=== PATIENT | male | born 1940 | race Caucasian/White ===

== ENCOUNTER → 2016-06-17 | Outpatient (REF) | payer MEDICARE, OTHER ==
[~2016-06-17] MED LIST: ASPI32ECTA PO; CENTTAB PO; CLON-404 PO; DOXA1TAB40 PO; FISH5CAP PO; GLUCTAB6 PO; METO50TA2 PO; NITR4TASL SL; PROS5TAB PO; SIMV20TA2 PO; VALS320T3 PO; ZYLO300T4 PO
== END | disposition home or self-care (01) ==
LOC: M SMT 12:48
PROVIDERS: ATTEND Urology
DX: C67.9 Malignant neoplasm of bladder, unspecified (principal)

== ENCOUNTER → 2016-09-16 | Outpatient (REF) | payer MEDICARE, OTHER | LOC: M SMT 13:08 | PROVIDERS: ATTEND Urology | DX: C67.9 Malignant neoplasm of bladder, unspecified (principal); N39.0 Urinary tract infection, site not specified ==

== ENCOUNTER 2016-10-18 04:19 | Emergency (ER) | payer MEDICARE, BC, OTHER ==
[~2016-10-18] VITALS: Ht 182.9 cm; Wt 100.7 kg
[2016-10-18] MEDS ORDERED: GI COCKTAIL 50ML BTL(HYOSCYAMINE/MAALOX/LIDOCAINE VISCOUS)(1:3:1) PO ONE (05:00)
[2016-10-18] MEDS ORDERED: PANTOPRAZOLE 40MG INJ (PROTONIX) (C9113) IV ONE (05:00)
[2016-10-18] MEDS ORDERED: ONDANSETRON 4MG/2ML VIAL (J2405) IV ONE (05:00)
[2016-10-18 05:32] LABS: BASO % 0.2 % (0.0-1.0); EOS # 0.2 K/mm3 (0.0-0.50); EOS % 1.3 % (0.0-3.0); LARGE UNSTAINED CELL # 0.3 K/mm3 (0.0-0.4); LARGE UNSTAINED CELL % 2.2 % (0.0-4.0); LYMPH % 16.7 % (24.0-44.0); MEAN CORPUSCULAR HEMOGLOBIN 33.3 pg (27.0-33.0); MEAN CORPUSCULAR HGB CONC 34.7 g/dl (32.0-36.5); MONO # 0.6 K/mm3 (0.0-0.8); NEUTROPHILS # 8.7 K/mm3 (1.8-7.7); NEUTROPHILS % 74.6 % (36.0-66.0); PLATELET COUNT, AUTOMATED 202 k/mm3 (150-450); WHITE BLOOD COUNT 11.7 K/mm3 (4.0-10.0)
[2016-10-18 05:48] LABS: ALBUMIN 3.8 GM/DL (3.2-5.2); ALBUMIN/GLOBULIN RATIO 1.27 (1.00-1.93); ALKALINE PHOSPHATASE 57 U/L (45-117); ALT/SGPT 55 U/L (12-78); ANION GAP 10 MEQ/L (8-16); AST/SGOT 39 U/L (15-37); BILIRUBIN,DIRECT 0.2 MG/DL (0.0-0.2); BILIRUBIN,TOTAL 0.6 MG/DL (0.2-1.0); BLOOD UREA NITROGEN 25 MG/DL (7-18); CALCIUM LEVEL 10.8 MG/DL (8.8-10.2); CARBON DIOXIDE LEVEL 29 MEQ/L (21-32); CHLORIDE LEVEL 101 MEQ/L (98-107); CREATININE FOR GFR 1.38 MG/DL (0.70-1.30); GLOMERULAR FILTRATION RATE 53.6 (>42); GLUCOSE, FASTING 133 MG/DL (83-110); POTASSIUM SERUM 4.1 MEQ/L (3.5-5.1); SODIUM LEVEL 140 MEQ/L (136-145); TOTAL PROTEIN 6.8 GM/DL (6.4-8.2)
[2016-10-18] MEDS ORDERED: PROT1TAB2 PO (06:26)
[2016-10-18 06:39] VITALS: BP 161/69
--- NOTE | 2016-10-18 16:46 | ECGEPIP ---
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
[2016-10-19] MEDS ORDERED: ALLO15TA PO (00:49)
[2016-10-19] MEDS ORDERED: PROT1TAB2 PO (00:49)
[2016-10-19] MEDS ORDERED: VITMTA PO (00:49)
[2016-10-23] MEDS ORDERED: PROT1TAB2 PO ×2 (11:43→11:45)
== END 2016-10-18 06:41 | disposition home or self-care (01) ==
LOC: M ED 06:05
DX: K21.9 Gastro-esophageal reflux disease without esophagitis (principal); N18.9 Chronic kidney disease, unspecified; Z85.51 Personal history of malignant neoplasm of bladder; Z79.82 Long term (current) use of aspirin; Z79.899 Other long term (current) drug therapy; Z88.6 Allergy status to analgesic agent

== ENCOUNTER 2016-10-18 21:34 | Inpatient (IN) | payer MEDICARE, BC, OTHER ==
[~2016-10-18] VITALS: Ht 182.9 cm; Wt 92.9 kg
[~2016-10-18 21:34] MED LIST changes: +PROT1TAB2 PO; +cloNIDine HCL 0.3 MG/24 HR PATCH TOP SCH
[2016-10-18] MEDS ORDERED: ONDANSETRON 4MG/2ML VIAL (J2405) IV ONE (22:00)
[2016-10-18] MEDS ORDERED: MORPHINE 2 MG/ML 1ML SYRINGE IV PRN (22:00)
[2016-10-18] MEDS ORDERED: NS 500 ML IV ONE (22:00)
[2016-10-18] MEDS ORDERED: ISOVUE-370 76% 100ML VIAL (Q9967) As Ordered ONE (22:03)
[2016-10-18 22:09] LABS: BASO % 0.2 % (0.0-1.0); EOS # 0.1 K/mm3 (0.0-0.50); EOS % 0.6 % (0.0-3.0); LARGE UNSTAINED CELL # 0.2 K/mm3 (0.0-0.4); LARGE UNSTAINED CELL % 1.3 % (0.0-4.0); LYMPH # 1.6 K/mm3 (1.5-4.5); LYMPH % 12.7 % (24.0-44.0); MEAN CORPUSCULAR HEMOGLOBIN 33.8 pg (27.0-33.0); MEAN CORPUSCULAR HGB CONC 35.2 g/dl (32.0-36.5); MEAN CORPUSCULAR VOLUME 95.8 fl (80.0-96.0); MONO # 0.6 K/mm3 (0.0-0.8); MONO % 4.4 % (0.0-5.0); NEUTROPHILS # 10.3 K/mm3 (1.8-7.7); NEUTROPHILS % 80.8 % (36.0-66.0); PLATELET COUNT, AUTOMATED 214 k/mm3 (150-450); RED CELL DISTRIBUTION WIDTH 12.8 % (11.5-14.5); WHITE BLOOD COUNT 12.7 K/mm3 (4.0-10.0)
[2016-10-18 22:33] LABS: ALBUMIN/GLOBULIN RATIO 1.08 (1.00-1.93); ALKALINE PHOSPHATASE 59 U/L (45-117); ALT/SGPT 53 U/L (12-78); ANION GAP 11 MEQ/L (8-16); AST/SGOT 37 U/L (15-37); BILIRUBIN,DIRECT 0.2 MG/DL (0.0-0.2); BILIRUBIN,TOTAL 0.6 MG/DL (0.2-1.0); BLOOD UREA NITROGEN 27 MG/DL (7-18); CALCIUM LEVEL 10.9 MG/DL (8.8-10.2); CARBON DIOXIDE LEVEL 27 MEQ/L (21-32); CHLORIDE LEVEL 101 MEQ/L (98-107); CREATININE FOR GFR 1.71 MG/DL (0.70-1.30); GLOMERULAR FILTRATION RATE 41.9 (>42); GLUCOSE, FASTING 128 MG/DL (83-110); POTASSIUM SERUM 4.1 MEQ/L (3.5-5.1); SODIUM LEVEL 139 MEQ/L (136-145); TOTAL PROTEIN 7.7 GM/DL (6.4-8.2)
--- NOTE | 2016-10-18 22:40 | REPUSA ---
CT of the abdomen and pelvis with contrast Clinical statement: Pain, vomiting. Technique: Multiple axial CT images were obtained from the base of the lungs through the floor of the pelvis utilizing 5 mm axial slices after administration of nonionic intravenous contrast. Coronal an d sagittal reconstructions were also obtained. Comparison: None. Findings: Chest: The visualized lung bases are clear. Abdomen: The liver, spleen, pancreas, kidneys, gallbladder, and adrenal glands are unremarkable. Mult iple simple cysts are seen in the right kidney. The aorta is within normal limits. There is no eviden ce of abdominal lymphadenopathy or ascites. The stomach is significantly distended. Pelvis: The bowel is unremarkable, with no obstructive or inflammatory changes. Sigmoid diverticulosi s is noted, without evidence of diverticulitis. The urinary bladder is within normal limits. The othe r pelvic structures appear grossly intact. There is no evidence of pelvic lymphadenopathy or ascites. Bones: There are no suspicious osseous abnormalities seen. There is moderately severe degenerative di sc disease at L3/L4, L4/L5, and L5/S1. Impression: 1. Moderately severe distention of the stomach. This is nonspecific, but gastric outlet obstruction c annot be excluded. 2. Multiple simple right renal cysts. 3. Sigmoid diverticulosis without evidence of diverticulitis. 4. Severe spondylosis and degenerative disc disease in the lumbar spine.
[2016-10-18] MEDS ORDERED: NS 1,000 ML IV ONE (22:45)
[2016-10-19] MEDS ORDERED: ALLO15TA PO (00:49)
[2016-10-19] MEDS ORDERED: PROT1TAB2 PO (00:49)
[2016-10-19] MEDS ORDERED: VITMTA PO (00:49)
[2016-10-19] MEDS ORDERED: MORPHINE 2 MG/ML 1ML SYRINGE IV PRN (01:30)
[2016-10-19] MEDS ORDERED: PERCOCET 5MG/325MG TAB PO PRN (01:30)
[2016-10-19] MEDS ORDERED: NITROGLYCERIN 0.4 MG SUBL TABLET SL PRN (01:30)
[2016-10-19] MEDS ORDERED: ACETAMINOPHEN TAB 650MG DOSE (2X325MG) PO PRN (01:30)
[2016-10-19] MEDS ORDERED: BISACODYL 5 MG TAB PO PRN (01:30)
[2016-10-19] MEDS ORDERED: ONDANSETRON 4MG/2ML VIAL (J2405) IV PRN (01:30)
[2016-10-19] MEDS ORDERED: LABETALOL HCL 100 MG/20 ML VIAL IV ONE (02:15)
[2016-10-19 03:15] VITALS: BP 182/90
[2016-10-19] MEDS: LR 1,000 ML IV SCH ×2 (03:30→15:55)
[2016-10-19] MEDS ORDERED: **hydrALAZINE** 10 MG TAB PO ONE (04:00)
[2016-10-19 04:09] LABS: BASO % 0.2 % (0.0-1.0); EOS % 0.4 % (0.0-3.0); LARGE UNSTAINED CELL # 0.2 K/mm3 (0.0-0.4); LARGE UNSTAINED CELL % 1.6 % (0.0-4.0); LYMPH % 16.1 % (24.0-44.0); MEAN CORPUSCULAR HEMOGLOBIN 32.2 pg (27.0-33.0); MEAN CORPUSCULAR HGB CONC 34.4 g/dl (32.0-36.5); MEAN CORPUSCULAR VOLUME 93.4 fl (80.0-96.0); MONO # 0.6 K/mm3 (0.0-0.8); MONO % 4.9 % (0.0-5.0); NEUTROPHILS # 8.9 K/mm3 (1.8-7.7); NEUTROPHILS % 76.9 % (36.0-66.0); PLATELET COUNT, AUTOMATED 205 k/mm3 (150-450); RED CELL DISTRIBUTION WIDTH 13.1 % (11.5-14.5); WHITE BLOOD COUNT 11.6 K/mm3 (4.0-10.0)
[2016-10-19 04:35] LABS: ALBUMIN 3.7 GM/DL (3.2-5.2); ALBUMIN/GLOBULIN RATIO 1.28 (1.00-1.93); BILIRUBIN,TOTAL 0.4 MG/DL (0.2-1.0); CALCIUM LEVEL 9.3 MG/DL (8.8-10.2); CREATININE FOR GFR 1.64 MG/DL (0.70-1.30); GLOMERULAR FILTRATION RATE 43.9 (>42); MAGNESIUM LEVEL 1.6 MG/DL (1.8-2.4); POTASSIUM SERUM 4.1 MEQ/L (3.5-5.1); TOTAL PROTEIN 6.6 GM/DL (6.4-8.2)
[2016-10-19 05:29] VITALS: BP 179/70
[2016-10-19] MEDS ORDERED: MAG SULF 1GM/100ML (MAG RUN) 1 GM in APPROPRIATE DILUENT 1 EA IV ONE (05:45)
--- NOTE | 2016-10-19 08:10 | HPE ---
DATE OF ADMISSION: 10/19/2016 PRIMARY CARE PHYSICIAN: Dr. Mcintyre. UROLOGIST: Dr. Simon. CODE STATUS: DO NOT RESUSCITATE/DO NOT INTUBATE (DNR/DNI). CHIEF COMPLAINT: Nausea, vomiting and abdominal pain bilaterally. HISTORY OF PRESENT ILLNESS: Mr. Santiago is a 75-year-old male with multiple past medical history who presented to the emergency room (ER) due to experiencing two days of abdominal pain as well as nausea and four episodes of vomiting. The patient expressed that the nausea started about two days ago and the patient had episode of vomiting. At first, he thought that it was going to get better with eating some crackers, however, it did not help. The patient came to the ER at [facility]. At the ER, the patient was diagnosed wit gastroesophageal reflux disease (GERD) and received Zofran and one dose of GI cocktail. The patient expressed that after that the patient felt better and went home. The patient said that he was doing better in the morning. For lunch, the patient had chicken soup, however, after eating chicken soup he started noticing nausea and the patient started having four episodes of vomiting. However, the patient did not see any blood in his vomit. The patient expressed that his abdominal pain and discomfort increased to the point that the patient came back to the ER. 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 However, the patient has not been on chemotherapy or radiation, however, the patient started on a dosage BCG which was administered at urology. The patient had the diarrhea yesterday and the day before, however, the patient did not have any bowel movement today. The patient cannot remember if he has been passing gas after increase of abdominal pain. The patient denies fever, chills or night sweats. The patient also denies altered mental status, seizure type activity or loss of consciousness. The patient expressed that when he came here he had another episode of vomiting when they were performing a CT. PAST MEDICAL HISTORY: 1. Hypertension. 2. Atherosclerosis coronary disease. 3. Hyperlipidemia. 4. Kidney disease. PAST SURGICAL HISTORY: 1. Tonsillectomy. 2. Partial colectomy from diverticulitis. 3. Inguinal hernia. 4. Hemorrhoidectomy. 5. Cardiac stent. 6. TURBT on 12/31/2015. 7. Restaging TURBT on 02/15/2016. ALLERGIES: - NSAIDS HOME MEDICATIONS: - allopurinol 150 mg by mouth daily - aspirin 325 mg by mouth daily - clonidine 0.3 mg by mouth twice a day - doxazosin mesylate 4 mg by mouth daily - Proscar 5 mg by mouth daily - fish oil 1200 mg one capsule by mouth twice a day - glucosamine one tablet by mouth daily - metoprolol 50 mg by mouth twice a day - multivitamin one tablet by mouth daily - Nitrostat 0.4 mg sublingual as needed angina - Protonix 40 mg by mouth daily - valsartan/hydrochlorothiazide one tablet by mouth daily REVIEW OF SYSTEMS: The patient denies fever, chills, night sweats, weight loss, weight gain. HEENT: The patient denies acute vision or hearing changes. The patient denies problem with chewing food or sinusitis. NECK: The patient denies lumps, bumps, or decreased range of motion of his neck. HEART: The patient denies chest pain, however, patient expressed that he had some feeling of palpitations when he was vomiting, possibly secondary to stress. LUNGS: The patient denies shortness of breath or coughing. ABDOMEN: The patient expressed that he has been experiencing abdominal pain bilaterally, left more than right. The patient had four episodes of vomiting, however, no emesis was noticed. The patient had one episode of diarrhea yesterday, however, the patient denies melena or hematochezia, or constipation. NEUROLOGIC: The patient denies history of transient ischemic attack (TIA), cerebrovascular accident (CVA) or seizure-type activities. PHYSICAL EXAMINATION: VITAL SIGNS: Temperature 97.7, pulse 99, respiratory rate 18, blood pressure 181/111, pulse oximetry 97% on room air. GENERAL APPEARANCE: The patient was lying in bed in no acute distress. The patient was awake, alert, and oriented to time, place and person. HEENT: Normocephalic, atraumatic. Pupils are equal and reactive to light. Oral mucosa is moist. NECK: Soft, supple. No thyromegaly. No jugular venous distention (JVD). HEART: Tachycardia. Normal S1, S2. LUNGS: The patient has clear breath sounds bilaterally. Good air movement. ABDOMEN: Soft. Mild tenderness to palpation in both left and right upper and lower abdominal quadrants. Positive bowel sounds in all quadrants. EXTREMITIES: No lower extremity edema, +2 pulses in both lower extremities. The patient has normal range of motion both upper and lower extremities as well as normal strength (5/5). NEUROLOGIC: Cranial nerves II-XII intact. No focal deficiencies. LABORATORY DATA: White blood cells 12.7, red blood cells 4.45, hemoglobin 15, hematocrit 42.6, MCV 95.8, MCH 33.8, MCHC 35.2, RDW 12.8, platelet count 214, neutrophil percentage 80.8, lymphocyte percentage 12.7, monocyte percentage 4.4, eosinophil percentage 0.6, basophil percentage 0.2, leukocyte percentage 1.3. Sodium 139, potassium 4.1, chloride 101, carbon dioxide 27, anion gap 11, BUN 27 , creatinine 1.71, glomerular filtration rate 41.9, fasting glucose 128, calcium 10.9, total bilirubin 0.6, direct bilirubin 0.2, AST 37, ALT 53, alkaline phosphatase 59, total creatinine kinase 445, CK-MB 8.8, CK MB relative index 1.97, troponin I less than 0.02, total protein 7.7, albumin 4, lipase 234. IMAGING: CT of abdomen and pelvis shows moderately severe distended stomach. This is nonspecific. Gastric outlet obstruction cannot be excluded. Multiple simple right renal cysts. Sigmoid diverticulosis without evidence of diverticulitis. Severe spondylosis. Degenerative disc disease in the lumbar spine. ASSESSMENT AND PLAN: 1. Abdominal pain. The gastric outlet obstruction cannot be excluded. Therefore, NG tube was installed which is on suction. After NG tube, the patient felt better. Also, I made the patient nothing by mouth (n.p.o.). The patient is on IV fluid. Surgery, Dr. Colindres has been consulted. Also, will continue patient on Protonix 40 mg IV every 12 hours and Zofran for nausea. 2. Hypertension. At home, the patient is Diovan 320/25 mg, however, I have held this medication due to abnormal kidney function. Will continue patient on clonidine. 3. Coronary artery disease. At home, the patient is on aspirin 325 mg daily, however, I have held this medication due to possible procedure and I will continue the patient on metoprolol 50 mg by mouth twice a day. EKG did not show any new pathology. Also, first cardiac marker was negative. We will repeat the cardiac marker two times every 6 hours. 4. Acute kidney injury. At this time, I do not have patient's baseline kidney function. This is possibly secondary to dehydration. We will continue the patient on IV fluid. 5. Deep vein thrombosis (DVT) prophylaxis due to possibility of surgery. At this time, we will continue patient on thromboembolic deterrent stockings (TEDS) and sequentials. My preceptor for this patient encounter was Dr. Thalia Paul. The preceptor was physically present in the building during the encounter and was fully available. As needed, all aspects of the patient interview, examination, medical decision making process, and medical care plan development were reviewed and approved by the preceptor. The preceptor is aware and concurs with the plan as stated in the body of this note and will attest to such by his/her cosignature. MOMO
[2016-10-19] MEDS ORDERED: cloNIDine 0.1 MG TAB PO SCH (09:00)
[2016-10-19] MEDS: MULTIVITAMINS/MINERALS THERAP 1 TAB PO SCH (09:00)
[2016-10-19] MEDS ORDERED: METOPROLOL TART 50 MG TAB PO SCH (09:00)
[2016-10-19] MEDS: FINASTERIDE 5 MG TAB PO SCH (09:32)
[2016-10-19] MEDS: DOXAZOSIN MESYLATE 4 MG TAB PO SCH (09:34)
[2016-10-19] MEDS: PANTOPRAZOLE 40MG INJ (PROTONIX) (C9113) IV SCH (09:35)
[2016-10-19] MEDS: ALLOPURINOL 300 MG TAB PO SCH (09:35)
[2016-10-19 14:00] VITALS: BP 154/62
--- NOTE | 2016-10-19 18:39 | IPNPDOC ---
Subjective Date Seen The patient was seen on 10/19/16. Subjective Chief Complaint/HPI The patient is a 75-year-old male admitted with a reason for visit of Gastric Distention. Events since last encounter feels better. tolerating ng tube, wants ice chips for comfort, no chest pain, not sob, case discussed with patient and at bedside, understands plan/ timeframe for egd Constitutional: Denies: Chills, Fever Pulmonary: Denies: Dyspnea, Cough Cardiovascular: Denies: Chest Pain, Palpitations Gastrointestinal: Reports: Nausea, Abdominal Pain, Denies: Vomiting Objective Physical Examination General Exam: Positive: Alert, Cooperative, No Acute Distress Eye Exam: Negative: Sclera icteric ENT Exam: Positive: Mucous membr. moist/pink Chest Exam: Positive: Diminished, Negative: Rales, Rhonchi, Wheezing Heart Exam: Positive: Rate Normal, Normal S1, Normal S2 Abdomen Exam: Positive: BS Hypoactive, Soft, Negative: Tenderness Extremity Exam: Negative: Edema Assessment /Plan Problems (1) Gastric outlet obstruction Status: Acute Problem Specific Plan: Consult Specialist Problem Text: NPO, NG tube Planned for endoscopy I discussed with Dr. Colindres (2) Bladder cancer Status: Chronic Problem Text: on BCG therapy (3) HTN (hypertension) Status: Acute Problem Text: compounded bypain and npo status improved this afternoon (4) CAD (coronary artery disease) Status: Chronic (5) Hyperlipidemia Status: Chronic Plan/VTE VTE Prophylaxis Ordered?: Yes VS, I&O, 24H, Fishbone Vital Signs/I&O Vital Signs Date Time Temp Pulse Resp B/P (MAP) Pulse Ox O2 Delivery O2 Flow Rate FiO2 10/19/16 14:00 98.7 105 18 154/62 (92) 94 Room Air I&O- Last 24 Hours up to 6 AM 10/19/16 05:59 Intake Total 1530 ml Output Total 2000 ml Balance -470 ml Laboratory Data 24H LABS Laboratory Tests 2 10/18/16 22:00: White Blood Count 12.7H, Red Blood Count 4.45, Hemoglobin 15.0, Hematocrit 42.6 , Mean Corpuscular Volume 95.8, Mean Corpuscular Hemoglobin 33.8H, Mean Corpuscular Hemoglobin Concent 35.2, Red Cell Distribution Width 12.8, Platelet Count 214, Neutrophils (%) (Auto) 80.8H, Lymphocytes (%) (Auto) 12.7L, Monocytes (%) (Auto) 4.4, Eosinophils (%) (Auto) 0.6, Basophils (%) (Auto) 0.2, Neutrophils # (Auto) 10.3H, Lymphocytes # (Auto) 1.6, Monocytes # (Auto) 0.6, Eosinophils # (Auto) 0.1, Basophils # (Auto) 0.0, Large Unclassified Cells % 1.3 , Large Unclassified Cells # 0.2, Anion Gap 11, Glomerular Filtration Rate 41.9L , Calcium Level 10.9H, Aspartate Amino Transf (AST/SGOT) 37, Alanine Aminotransferase (ALT/SGPT) 53, Alkaline Phosphatase 59, Total Bilirubin 0.6, Direct Bilirubin 0.2, Total Creatine Kinase 445H, Creatine Kinase MB 8.8H, Creatine Kinase MB Relative Index 1.97, Troponin I < 0.02, Total Protein 7.7, Albumin 4.0, Albumin/Globulin Ratio 1.08, Lipase 234 10/19/16 04:02: White Blood Count 11.6H, Red Blood Count 4.11L, Hemoglobin 13.2L, Hematocrit 38.4L, Mean Corpuscular Volume 93.4, Mean Corpuscular Hemoglobin 32.2, Mean Corpuscular Hemoglobin Concent 34.4, Red Cell Distribution Width 13.1, Platelet Count 205, Neutrophils (%) (Auto) 76.9H, Lymphocytes (%) (Auto) 16.1L, Monocytes (%) (Auto) 4.9, Eosinophils (%) (Auto) 0.4, Basophils (%) (Auto) 0.2, Neutrophils # (Auto) 8.9H, Lymphocytes # (Auto) 2.0, Monocytes # (Auto) 0.6, Eosinophils # (Auto) 0.0, Basophils # (Auto) 0.0, Large Unclassified Cells % 1.6 , Large Unclassified Cells # 0.2, Anion Gap 10, Glomerular Filtration Rate 43.9 , Calcium Level 9.3, Aspartate Amino Transf (AST/SGOT) 32, Alanine Aminotransferase (ALT/SGPT) 44, Alkaline Phosphatase 53, Total Bilirubin 0.4, Total Creatine Kinase 341H, Creatine Kinase MB 6.2H, Creatine Kinase MB Relative Index 1.81, Troponin I 0.03#, Total Protein 6.6, Albumin 3.7, Albumin/ Globulin Ratio 1.28, Blood Urea Nitrogen 28H, Creatinine 1.64H, Sodium Level 143 , Potassium Level 4.1, Chloride Level 105, Carbon Dioxide Level 28, Magnesium Level 1.6L 10/19/16 10:12: Total Creatine Kinase 336H, Creatine Kinase MB 5.9H, Creatine Kinase MB Relative Index 1.75, Troponin I 0.03 CBC/BMP Laboratory Tests 10/18/16 22:00 Red Blood Count 4.45, Mean Corpuscular Volume 95.8, Mean Corpuscular Hemoglobin 33.8 H, Mean Corpuscular Hemoglobin Concent 35.2, Red Cell Distribution Width 12.8, Neutrophils (%) (Auto) 80.8 H, Lymphocytes (%) (Auto) 12.7 L, Monocytes (% ) (Auto) 4.4, Eosinophils (%) (Auto) 0.6, Basophils (%) (Auto) 0.2, Neutrophils # (Auto) 10.3 H, Lymphocytes # (Auto) 1.6, Monocytes # (Auto) 0.6, Eosinophils # (Auto) 0.1, Basophils # (Auto) 0.0 10/19/16 04:02 Red Blood Count 4.11 L, Mean Corpuscular Volume 93.4, Mean Corpuscular Hemoglobin 32.2, Mean Corpuscular Hemoglobin Concent 34.4, Red Cell Distribution Width 13.1, Neutrophils (%) (Auto) 76.9 H, Lymphocytes (%) (Auto) 16.1 L, Monocytes (%) (Auto) 4.9, Eosinophils (%) (Auto) 0.4, Basophils (%) ( Auto) 0.2, Neutrophils # (Auto) 8.9 H, Lymphocytes # (Auto) 2.0, Monocytes # ( Auto) 0.6, Eosinophils # (Auto) 0.0, Basophils # (Auto) 0.0, Calcium Level 9.3, Aspartate Amino Transf (AST/SGOT) 32, Alanine Aminotransferase (ALT/SGPT) 44, Alkaline Phosphatase 53, Total Bilirubin 0.4, Total Protein 6.6, Albumin 3.7 MARY ARSHAD MD October 19, 2016 18:39
[2016-10-19 22:00] VITALS: BP 142/78
[2016-10-20] VITALS (7 sets, daily range): BP systolic 138–167; BP diastolic 68–88
[2016-10-20] MEDS: LR 1,000 ML IV SCH ×2 (04:44→17:12)
[2016-10-20 06:11] LABS: BASO % 0.4 % (0.0-1.0); EOS # 0.2 K/mm3 (0.0-0.50); EOS % 1.5 % (0.0-3.0); LARGE UNSTAINED CELL # 0.3 K/mm3 (0.0-0.4); LARGE UNSTAINED CELL % 2.1 % (0.0-4.0); LYMPH # 1.7 K/mm3 (1.5-4.5); LYMPH % 12.1 % (24.0-44.0); MEAN CORPUSCULAR HEMOGLOBIN 34.3 pg (27.0-33.0); MEAN CORPUSCULAR HGB CONC 35.7 g/dl (32.0-36.5); MEAN CORPUSCULAR VOLUME 96.1 fl (80.0-96.0); MONO # 0.9 K/mm3 (0.0-0.8); MONO % 7.9 % (0.0-5.0); NEUTROPHILS # 8.9 K/mm3 (1.8-7.7); NEUTROPHILS % 76.1 % (36.0-66.0); PLATELET COUNT, AUTOMATED 202 k/mm3 (150-450); RED CELL DISTRIBUTION WIDTH 13.2 % (11.5-14.5); WHITE BLOOD COUNT 11.8 K/mm3 (4.0-10.0)
[2016-10-20 06:35] LABS: ALBUMIN 3.3 GM/DL (3.2-5.2); ALBUMIN/GLOBULIN RATIO 0.97 (1.00-1.93); BILIRUBIN,TOTAL 0.6 MG/DL (0.2-1.0); CALCIUM LEVEL 9.4 MG/DL (8.8-10.2); CREATININE FOR GFR 1.96 MG/DL (0.70-1.30); GLOMERULAR FILTRATION RATE 35.8 (>42); POTASSIUM SERUM 3.7 MEQ/L (3.5-5.1); TOTAL PROTEIN 6.7 GM/DL (6.4-8.2)
[2016-10-20] MEDS: FINASTERIDE 5 MG TAB PO SCH (08:52)
[2016-10-20] MEDS: PANTOPRAZOLE 40MG INJ (PROTONIX) (C9113) IV SCH (08:52)
[2016-10-20] MEDS: MULTIVITAMINS/MINERALS THERAP 1 TAB PO SCH (08:53)
[2016-10-20] MEDS: ALLOPURINOL 300 MG TAB PO SCH (08:53)
[2016-10-20] MEDS: DOXAZOSIN MESYLATE 4 MG TAB PO SCH (08:53)
[2016-10-20] MEDS ORDERED: fentaNYL 100 MCG/2 ML INJECTION (J3010) As Ordered ONE (17:44)
[2016-10-20] MEDS ORDERED: SUCCINYLCHOLINE 100 MG/5 ML SYRINGE (J0330) As Ordered ONE (18:00)
[2016-10-20] MEDS ORDERED: PROPOFOL 200 MG/20 ML VIAL As Ordered ONE (18:00)
[2016-10-20] MEDS ORDERED: ROCURONIUM BROMIDE 50 MG/5 ML VIAL As Ordered ONE (18:00)
--- NOTE | 2016-10-20 18:02 | ROOR ---
Patient Name: Kishan Santiago Procedure Date: 10/20/2016 5:05 PM Date of : 1940 Age: 75 Gender: Male Note Status: Finalized Procedure: Upper GI endoscopy Indications: Epigastric abdominal pain, Abnormal CT of the GI tract, Abdominal distention Providers: Emmanuel Colindres MD Referring MD: Ronald Burgos MD Requesting Provider: Medicines: General Anesthesia Complications: No immediate complications. Procedure: Pre-Anesthesia Assessment: - Prior to the procedure, a History and Physical was performed, and patient medications and allergies were reviewed. The patient is competent. The risks and benefits of the procedure and the sedation options and risks were discussed with the patient. All questions were answered and informed consent was obtained. Patient identification and proposed procedure were verified by the physician, the nurse and the anesthesiologist in the procedure room. Mental Status Examination: alert and oriented. Airway Examination: normal oropharyngeal airway and neck mobility. Respiratory Examination: clear to auscultation. CV Examination: normal. Prophylactic Antibiotics: The patient does not require prophylactic antibiotics. Prior Anticoagulants: The patient has taken aspirin, last dose was 3 days prior to procedure. ASA Grade Assessment: III - A patient with severe systemic disease. After reviewing the risks and benefits, the patient was deemed in satisfactory condition to undergo the procedure. The anesthesia plan was to use general anesthesia. Immediately prior to administration of medications, the patient was re-assessed for adequacy to receive sedatives. The heart rate, respiratory rate, oxygen saturations, blood pressure, adequacy of pulmonary ventilation, and response to care were monitored throughout the procedure. The physical status of the patient was re-assessed after the procedure. The Endoscope was introduced through the mouth, and advanced to the second part of duodenum. The Endoscope was introduced through the mouth, and advanced to the second part of duodenum. The upper GI endoscopy was accomplished without difficulty. The patient tolerated the procedure well. Findings: The examined esophagus was normal. One non-bleeding superficial gastric ulcer with pigmented material was found in the cardia. The lesion was 2 mm in largest dimension. Biopsies were taken with a cold forceps for Helicobacter pylori testing. Estimated blood loss was minimal. Striped mildly erythematous mucosa without bleeding was found in the gastric body. Two non-bleeding superficial duodenal ulcers with no stigmata of bleeding were found in the duodenal bulb. The largest lesion was 3 mm in largest dimension. Biopsies were taken with a cold forceps for histology. Impression: - Normal esophagus. - Non-bleeding gastric ulcer with pigmented material. Biopsied. - Erythematous mucosa in the gastric body. - Multiple non-obstructing non-bleeding duodenal ulcers with no stigmata of bleeding. There is no evidence of perforation. Biopsied. Recommendation: - Ad[facility] the [facility]. - Use Protonix (pantoprazole) 40 mg PO BID today. Attending Participation: I personally performed the entire procedure. Emmanuel Colindres MD Emmanuel Colindres MD 10/20/2016 6:02:06 PM This report has been signed electronically. Number of Addenda: 0 Note Initiated On: 10/20/2016 5:05 PM Estimated Blood Loss: Estimated blood loss was minimal.
[2016-10-20] MEDS ORDERED: LR 1,000 ML IV SCH (18:30)
[2016-10-20] MEDS ORDERED: ONDANSETRON 4MG/2ML VIAL (J2405) IV PRN (18:30)
[2016-10-20] MEDS ORDERED: fentaNYL 100 MCG/2 ML INJECTION (J3010) IV PRN (18:30)
--- NOTE | 2016-10-20 20:47 | ECGEPIP ---
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
--- NOTE | 2016-10-20 20:51 | IPNPDOC ---
Subjective Date Seen The patient was seen on 10/20/16. Subjective Chief Complaint/HPI The patient is a 75-year-old male admitted with a reason for visit of Gastric Distention. Events since last encounter Feeling better today, no abd discomfort, wanted ng out as he found it uncomfortable, worried that he might have cancer Constitutional: Denies: Chills, Fever Pulmonary: Denies: Dyspnea, Cough Cardiovascular: Denies: Chest Pain, Palpitations Gastrointestinal: Denies: Nausea, Vomiting, Abdominal Pain Objective Physical Examination General Exam: Positive: Alert, Cooperative, No Acute Distress Eye Exam: Negative: Sclera icteric ENT Exam: Positive: Mucous membr. moist/pink Chest Exam: Positive: Normal air movement, Negative: Rales, Rhonchi, Wheezing Heart Exam: Positive: Rate Normal, Normal S1, Normal S2 Abdomen Exam: Positive: BS Hypoactive, Soft, Negative: Tenderness Extremity Exam: Negative: Edema Assessment /Plan Problems (1) Gastric outlet obstruction Status: Acute Problem Specific Plan: Consult Specialist Problem Text: Endoscopy showed gastric and doudenal ulcers. Diet advanced. Acid suppression ordered Appreciate Dr. Colindres's management (2) Bladder cancer Status: Chronic Problem Text: on BCG therapy (3) HTN (hypertension) Status: Acute Problem Text: compounded by pain and npo status reasonably well controlled for hospital setting (4) CAD (coronary artery disease) Status: Chronic (5) Hyperlipidemia Status: Chronic Plan/VTE VTE Prophylaxis Ordered?: Yes VS, I&O, 24H, Fishbone Vital Signs/I&O Vital Signs Date Time Temp Pulse Resp B/P (MAP) Pulse Ox O2 Delivery O2 Flow Rate FiO2 10/20/16 18:50 98.5 86 17 160/70 (100) 97 Room Air 10/20/16 18:40 2 I&O- Last 24 Hours up to 6 AM 10/20/16 06:00 Intake Total 1860 ml Output Total 2825 ml Balance -965 ml Laboratory Data 24H LABS Laboratory Tests 2 10/20/16 05:43: White Blood Count 11.8H, Red Blood Count 3.95L, Hemoglobin 13.6L, Hematocrit 38.0L, Mean Corpuscular Volume 96.1H, Mean Corpuscular Hemoglobin 34.3H, Mean Corpuscular Hemoglobin Concent 35.7, Red Cell Distribution Width 13.2, Platelet Count 202, Neutrophils (%) (Auto) 76.1H, Lymphocytes (%) (Auto) 12.1L, Monocytes (%) (Auto) 7.9H, Eosinophils (%) (Auto) 1.5, Basophils (%) (Auto) 0.4 , Neutrophils # (Auto) 8.9H, Lymphocytes # (Auto) 1.7, Monocytes # (Auto) 0.9H, Eosinophils # (Auto) 0.2, Basophils # (Auto) 0.0, Large Unclassified Cells % 2.1 , Large Unclassified Cells # 0.3, Anion Gap 8, Glomerular Filtration Rate 35.8L , Blood Urea Nitrogen 36H, Creatinine 1.96H, Sodium Level 143, Potassium Level 3.7, Chloride Level 107, Carbon Dioxide Level 28, Calcium Level 9.4, Aspartate Amino Transf (AST/SGOT) 26, Alanine Aminotransferase (ALT/SGPT) 38, Alkaline Phosphatase 49, Total Bilirubin 0.6, Total Protein 6.7, Albumin 3.3, Magnesium Level 2.0, Albumin/Globulin Ratio 0.97L CBC/BMP Laboratory Tests 10/20/16 05:43 Red Blood Count 3.95 L, Mean Corpuscular Volume 96.1 H, Mean Corpuscular Hemoglobin 34.3 H, Mean Corpuscular Hemoglobin Concent 35.7, Red Cell Distribution Width 13.2, Neutrophils (%) (Auto) 76.1 H, Lymphocytes (%) (Auto) 12.1 L, Monocytes (%) (Auto) 7.9 H, Eosinophils (%) (Auto) 1.5, Basophils (%) ( Auto) 0.4, Neutrophils # (Auto) 8.9 H, Lymphocytes # (Auto) 1.7, Monocytes # ( Auto) 0.9 H, Eosinophils # (Auto) 0.2, Basophils # (Auto) 0.0, Calcium Level 9.4 , Aspartate Amino Transf (AST/SGOT) 26, Alanine Aminotransferase (ALT/SGPT) 38, Alkaline Phosphatase 49, Total Bilirubin 0.6, Total Protein 6.7, Albumin 3.3 MARY ARSHAD MD October 20, 2016 20:51
[2016-10-20] MEDS: PANTOPRAZOLE 40MG TAB (PROTONIX) PO SCH (20:55)
[2016-10-21] MEDS: LR 1,000 ML IV SCH (02:15)
[2016-10-21 06:00] VITALS: BP 160/60
[2016-10-21 07:02] LABS: BASO % 0.4 % (0.0-1.0); EOS # 0.3 K/mm3 (0.0-0.50); EOS % 3.5 % (0.0-3.0); LARGE UNSTAINED CELL # 0.2 K/mm3 (0.0-0.4); LARGE UNSTAINED CELL % 2.2 % (0.0-4.0); LYMPH # 2.1 K/mm3 (1.5-4.5); LYMPH % 20.3 % (24.0-44.0); MEAN CORPUSCULAR HEMOGLOBIN 33.6 pg (27.0-33.0); MEAN CORPUSCULAR VOLUME 95.9 fl (80.0-96.0); MONO # 0.6 K/mm3 (0.0-0.8); MONO % 6.5 % (0.0-5.0); NEUTROPHILS # 6.4 K/mm3 (1.8-7.7); NEUTROPHILS % 67.1 % (36.0-66.0); PLATELET COUNT, AUTOMATED 192 k/mm3 (150-450); WHITE BLOOD COUNT 9.5 K/mm3 (4.0-10.0)
[2016-10-21 07:13] LABS: ALBUMIN 3.1 GM/DL (3.2-5.2); ALBUMIN/GLOBULIN RATIO 0.89 (1.00-1.93); BILIRUBIN,TOTAL 0.7 MG/DL (0.2-1.0); CALCIUM LEVEL 8.9 MG/DL (8.8-10.2); CREATININE FOR GFR 1.4 MG/DL (0.70-1.30); GLOMERULAR FILTRATION RATE 52.7 (>42); MAGNESIUM LEVEL 1.7 MG/DL (1.8-2.4); POTASSIUM SERUM 3.7 MEQ/L (3.5-5.1); TOTAL PROTEIN 6.6 GM/DL (6.4-8.2)
[2016-10-21] MEDS: MULTIVITAMINS/MINERALS THERAP 1 TAB PO SCH (08:21)
[2016-10-21] MEDS: PANTOPRAZOLE 40MG TAB (PROTONIX) PO SCH ×2 (08:21→20:15)
[2016-10-21] MEDS: ALLOPURINOL 300 MG TAB PO SCH (08:22)
[2016-10-21] MEDS: FINASTERIDE 5 MG TAB PO SCH (08:22)
[2016-10-21] MEDS: METOCLOPRAMIDE 10 MG TAB PO SCH ×3 (08:22→17:47)
[2016-10-21] MEDS: DOXAZOSIN MESYLATE 4 MG TAB PO SCH (08:22)
[2016-10-21] MEDS ORDERED: cloNIDine 0.1 MG TAB PO SCH (09:00)
--- NOTE | 2016-10-21 09:47 | IPNPDOC ---
Subjective Date Seen The patient was seen on 10/21/16. Subjective Chief Complaint/HPI The patient is a 75-year-old male admitted with a reason for visit of Gastric Distention. General: Denies: ROS Unobtainable, Chills, Night Sweats, Fatigue, Malaise, Normal Appetite, Other Symptoms Constitutional: Denies: Chills, Fever, Malaise, Night Sweats, Weakness, Fatigue , Weight Loss, Lethargy, Other Eyes: Denies: Pain, Vision change, Conjunctivae inflammation, Eyelid inflammation, Redness, Other ENT: Denies: Head Aches, Ear Pain, Dysphagia, Sinus Congestion, Post Nasal Drip , Sore Throat, Epistaxis, Other Symptoms Skin: Denies: Rash, Lesions, Jaundice, Bruising, Itching, Dry, Breakdown, Nail Changes, Other Pulmonary: Denies: Dyspnea, Cough, Pleuritic Chest Pain, Other Symptoms Cardiovascular: Denies: Chest Pain, Palpitations, Orthopnea, Paroxysmal Noc. Dyspnea, Edema, Lt Headedness, Other Symptoms Gastrointestinal: Denies: Nausea, Vomiting, Abdominal Pain, Diarrhea, Constipation, Melena, Hematochezia, Other Symptoms Genitourinary: Denies: Dysuria, Frequency, Incontinence, Hematuria, Retention, Other Symptoms Objective Physical Examination General Exam: Positive: Alert, Cooperative, No Acute Distress Eye Exam: Positive: EOMI, Negative: Sclera icteric ENT Exam: Positive: Mucous membr. moist/pink Chest Exam: Positive: Clear to auscultation, Normal air movement, Negative: Rales, Rhonchi, Wheezing Heart Exam: Positive: Rate Normal, Normal S1, Normal S2 Abdomen Exam: Positive: BS Hypoactive, Soft, Negative: Tenderness Extremity Exam: Negative: Edema Psych Exam: Positive: Oriented x 3 Assessment /Plan Problems (1) Gastric outlet obstruction Status: Acute Discussed With: Patient Problem Specific Plan: Consult Specialist, Monitor Clinically Problem Text: Endoscopy showed gastric and doudenal ulcers. Diet advanced. Acid suppression ordered Appreciate Dr. Colindres's assistance. Anticipating advancing diet today. (2) Bladder cancer Status: Chronic Problem Text: on BCG therapy F/U appointment scheduled for 10/24/16 Finasteride, doxazosin (3) HTN (hypertension) Status: Chronic Discussed With: Patient Problem Specific Plan: Monitor Clinically Problem Text: compounded by pain and npo status reasonably well controlled for hospital setting d/c PO clonidine - resume home medications - valsartan, HCTZ to resume on discharge (4) CAD (coronary artery disease) Status: Chronic (5) Hyperlipidemia Status: Chronic Plan/VTE VTE Prophylaxis Ordered?: Yes Plan IVF: Discontinue (anticipating d/c fluids if advancing diet) Diet: Advance (anticipating advancing diet today - as per surgery) Activity: Continue Current Medications: Change to PO, Replete Electrolytes IV Diagnostics: Repeat Labs in AM Anticipated Discharge: Home Anticipating advancing diet and d/c iv fluids. If tolerating, anticipating discharge in 24 hours. Will resume home anti-hypertensive medications. DC clonidine. VS, I&O, 24H, Fishbone Vital Signs/I&O Vital Signs Date Time Temp Pulse Resp B/P (MAP) Pulse Ox O2 Delivery O2 Flow Rate FiO2 10/21/16 06:00 99.5 78 18 160/60 (93) 94 Room Air 10/20/16 21:20 2.0 I&O- Last 24 Hours up to 6 AM 10/21/16 06:00 Intake Total 760 ml Output Total 1150 ml Balance -390 ml Laboratory Data 24H LABS Laboratory Tests 2 10/21/16 06:42: White Blood Count 9.5, Red Blood Count 3.62L, Hemoglobin 12.2L, Hematocrit 34.7L , Mean Corpuscular Volume 95.9, Mean Corpuscular Hemoglobin 33.6H, Mean Corpuscular Hemoglobin Concent 35.0, Red Cell Distribution Width 13.0, Platelet Count 192, Neutrophils (%) (Auto) 67.1H, Lymphocytes (%) (Auto) 20.3L, Monocytes (%) (Auto) 6.5H, Eosinophils (%) (Auto) 3.5H, Basophils (%) (Auto) 0.4 , Neutrophils # (Auto) 6.4, Lymphocytes # (Auto) 2.1, Monocytes # (Auto) 0.6, Eosinophils # (Auto) 0.3, Basophils # (Auto) 0.0, Large Unclassified Cells % 2.2 , Large Unclassified Cells # 0.2, Anion Gap 4L, Glomerular Filtration Rate 52.7 , Blood Urea Nitrogen 33H, Creatinine 1.40H, Sodium Level 142, Potassium Level 3.7, Chloride Level 107, Carbon Dioxide Level 31, Calcium Level 8.9, Aspartate Amino Transf (AST/SGOT) 27, Alanine Aminotransferase (ALT/SGPT) 35, Alkaline Phosphatase 45, Total Bilirubin 0.7, Total Protein 6.6, Albumin 3.1L, Magnesium Level 1.7L, Albumin/Globulin Ratio 0.89L CBC/BMP Laboratory Tests 10/21/16 06:42 Red Blood Count 3.62 L, Mean Corpuscular Volume 95.9, Mean Corpuscular Hemoglobin 33.6 H, Mean Corpuscular Hemoglobin Concent 35.0, Red Cell Distribution Width 13.0, Neutrophils (%) (Auto) 67.1 H, Lymphocytes (%) (Auto) 20.3 L, Monocytes (%) (Auto) 6.5 H, Eosinophils (%) (Auto) 3.5 H, Basophils (%) (Auto) 0.4, Neutrophils # (Auto) 6.4, Lymphocytes # (Auto) 2.1, Monocytes # ( Auto) 0.6, Eosinophils # (Auto) 0.3, Basophils # (Auto) 0.0, Calcium Level 8.9, Aspartate Amino Transf (AST/SGOT) 27, Alanine Aminotransferase (ALT/SGPT) 35, Alkaline Phosphatase 45, Total Bilirubin 0.7, Total Protein 6.6, Albumin 3.1 L ALMA SANCHEZ MD October 21, 2016 09:47
[2016-10-21 10:00] VITALS: BP 135/64
[2016-10-21] MEDS: VALSARTAN 80 MG TAB (DIOVAN) PO SCH (10:31)
[2016-10-21 14:00] VITALS: BP 151/68
[2016-10-21 18:00] VITALS: BP 180/78
[2016-10-21 18:04] VITALS: BP 180/78
[2016-10-21] MEDS ORDERED: hydroCHLOROthiazide 12.5 MG CAPSULE PO ONE (19:00)
[2016-10-21 22:00] VITALS: BP 159/60
[2016-10-22 02:00] VITALS: BP 150/56
[2016-10-22 06:00] VITALS: BP 135/75
[2016-10-22 06:28] LABS: BASO % 0.4 % (0.0-1.0); EOS # 0.4 K/mm3 (0.0-0.50); EOS % 3.9 % (0.0-3.0); LARGE UNSTAINED CELL # 0.2 K/mm3 (0.0-0.4); LYMPH % 19.7 % (24.0-44.0); MEAN CORPUSCULAR HEMOGLOBIN 32.8 pg (27.0-33.0); MEAN CORPUSCULAR HGB CONC 34.4 g/dl (32.0-36.5); MEAN CORPUSCULAR VOLUME 95.2 fl (80.0-96.0); MONO # 0.7 K/mm3 (0.0-0.8); MONO % 7.1 % (0.0-5.0); NEUTROPHILS # 6.3 K/mm3 (1.8-7.7); NEUTROPHILS % 66.9 % (36.0-66.0); PLATELET COUNT, AUTOMATED 194 k/mm3 (150-450); RED CELL DISTRIBUTION WIDTH 12.8 % (11.5-14.5); WHITE BLOOD COUNT 9.4 K/mm3 (4.0-10.0)
[2016-10-22 06:43] LABS: ALBUMIN/GLOBULIN RATIO 0.97 (1.00-1.93); BILIRUBIN,TOTAL 0.6 MG/DL (0.2-1.0); CALCIUM LEVEL 7.9 MG/DL (8.8-10.2); CREATININE FOR GFR 1.34 MG/DL (0.70-1.30); GLOMERULAR FILTRATION RATE 55.5 (>42); MAGNESIUM LEVEL 1.5 MG/DL (1.8-2.4); POTASSIUM SERUM 3.3 MEQ/L (3.5-5.1); TOTAL PROTEIN 6.1 GM/DL (6.4-8.2)
[2016-10-22] MEDS ORDERED: hydroCHLOROthiazide 25 MG TAB PO SCH (09:00)
[2016-10-22] MEDS: METOCLOPRAMIDE 10 MG TAB PO SCH (09:17)
[2016-10-22] MEDS: ALLOPURINOL 300 MG TAB PO SCH (09:17)
[2016-10-22] MEDS: DOXAZOSIN MESYLATE 4 MG TAB PO SCH (09:17)
[2016-10-22] MEDS: FINASTERIDE 5 MG TAB PO SCH (09:17)
[2016-10-22 09:18] VITALS: BP 182/62
[2016-10-22] MEDS: MULTIVITAMINS/MINERALS THERAP 1 TAB PO SCH (09:18)
[2016-10-22] MEDS: VALSARTAN 80 MG TAB (DIOVAN) PO SCH (09:18)
[2016-10-22] MEDS: PANTOPRAZOLE 40MG TAB (PROTONIX) PO SCH (09:18)
[2016-10-22] MEDS ORDERED: PROT1TAB2 PO (10:25)
--- NOTE | 2016-10-22 10:29 | DS.PDOC ---
Discharge Summary General Date of Admission October 19, 2016 at 01:45 Date of Discharge 10/22/16 Primary Care Physician: Abraham Mcintyre Specialist/Consultants Involve: HOLLAND COLINDRES MD Discharge Summary PROCEDURES PERFORMED DURING STAY: EGD DISCHARGE DIAGNOSES: 1. Gastric and duodenal ulcers 2. Bladder cancer - on BCG therapy 2. HTN 3. CAD 4. hyperlipidemia COMPLICATIONS/CHIEF COMPLAINT: Gastric Distention. HOSPITAL COURSE: 75-year old male for two days abdominal pain with nausea and vomiting. Originally discharged from ER with diagnosis of GERD with Zofran and GI cocktail. Patient's symptoms returned prompting him to return to the ER. Admitted for further evaluation and treatment, NG tube placed, intravenous PPI and NPO status. Surgical consultation for EGD which revealed non-bleeding gastric ulcer, and multiple non-obstructing non-bleeding duodenal ulcers with no stigmata of bleeding. Diet advanced and tolerated. Patient discharged for outpatient follow up. DISCHARGE MEDICATIONS: Please see below. ALLERGIES: Please see below. PHYSICAL EXAMINATION ON DISCHARGE: VITAL SIGNS: Please see below. GENERAL: NAD HEENT: NC/AT, EOMI, PERRL NECK: supple CARDIOVASCULAR EXAMINATION: +S1S2, RRR RESPIRATORY EXAMINATION: CTA B/L ABDOMINAL EXAMINATION: soft, NT, +BS EXTREMITIES: no edema PSYCHIATRIC EXAMINATION: AAOx3 LABORATORY DATA: Please see below. PROGNOSIS: Stable ACTIVITY: [As tolerated]. DIET: 2 gram sodium, low fat low cholesterol DISPOSITION: Discharge home. DISCHARGE INSTRUCTIONS: 1. Follow up PCP - Dr. Mcintyre in 3-5 days 2[address] Follow up [address] Simon 10/24/16 as scheduled. 3. Follow up cardiology as scheduled. 4. Medications as directed 5. Follow up surgery Dr. Colindres in 1-2 weeks. DISCHARGE CONDITION: [Stable]. TIME SPENT ON DISCHARGE: Greater than 30 minutes. Vital Signs/I&Os Vital Signs Date Time Temp Pulse Resp B/P (MAP) Pulse Ox O2 Delivery O2 Flow Rate FiO2 10/22/16 09:18 182/62 10/22/16 06:00 98.7 82 18 96 Room Air 10/20/16 21:20 2.0 I&O- Last 24 Hours up to 6 AM 10/22/16 06:00 Intake Total 2565 ml Output Total 200 ml Balance 2365 ml Laboratory Data Labs 24H Laboratory Tests 2 10/22/16 05:48: White Blood Count 9.4, Red Blood Count 3.66L, Hemoglobin 12.0L, Hematocrit 34.9L , Mean Corpuscular Volume 95.2, Mean Corpuscular Hemoglobin 32.8, Mean Corpuscular Hemoglobin Concent 34.4, Red Cell Distribution Width 12.8, Platelet Count 194, Neutrophils (%) (Auto) 66.9H, Lymphocytes (%) (Auto) 19.7L, Monocytes (%) (Auto) 7.1H, Eosinophils (%) (Auto) 3.9H, Basophils (%) (Auto) 0.4 , Neutrophils # (Auto) 6.3, Lymphocytes # (Auto) 2.0, Monocytes # (Auto) 0.7, Eosinophils # (Auto) 0.4, Basophils # (Auto) 0.0, Large Unclassified Cells % 2.0 , Large Unclassified Cells # 0.2, Anion Gap 7L, Glomerular Filtration Rate 55.5 , Blood Urea Nitrogen 24H, Creatinine 1.34H, Sodium Level 140, Potassium Level 3.3L, Chloride Level 104, Carbon Dioxide Level 29, Calcium Level 7.9L, Aspartate Amino Transf (AST/SGOT) 32, Alanine Aminotransferase (ALT/SGPT) 41, Alkaline Phosphatase 50, Total Bilirubin 0.6, Total Protein 6.1L, Albumin 3.0L, Magnesium Level 1.5L, Albumin/Globulin Ratio 0.97L CBC/BMP Laboratory Tests 10/22/16 05:48 Red Blood Count 3.66 L, Mean Corpuscular Volume 95.2, Mean Corpuscular Hemoglobin 32.8, Mean Corpuscular Hemoglobin Concent 34.4, Red Cell Distribution Width 12.8, Neutrophils (%) (Auto) 66.9 H, Lymphocytes (%) (Auto) 19.7 L, Monocytes (%) (Auto) 7.1 H, Eosinophils (%) (Auto) 3.9 H, Basophils (%) (Auto) 0.4, Neutrophils # (Auto) 6.3, Lymphocytes # (Auto) 2.0, Monocytes # ( Auto) 0.7, Eosinophils # (Auto) 0.4, Basophils # (Auto) 0.0, Calcium Level 7.9 L , Aspartate Amino Transf (AST/SGOT) 32, Alanine Aminotransferase (ALT/SGPT) 41, Alkaline Phosphatase 50, Total Bilirubin 0.6, Total Protein 6.1 L, Albumin 3.0 L Discharge Medications Scheduled (Glucosamine Chondroitin) 1 Tab Tab, 1 TAB PO DAILY, (Reported) (Fish Oil 1200 mg) 1 Cap Cap, 1 CAP PO BID, (Reported) (Valsartan/Hydrochlorothia 320-25 mg) 1 Tab Tab, 1 TAB PO DAILY, (Reported) Allopurinol (Allopurinol) 150 Mg Halftab, 150 MG PO DAILY, (Reported) Aspirin (Aspirin EC) 325 Mg Tabec, 325 MG PO DAILY, (Reported) Clonidine Hydrochloride (Clonidine HCl) 0.3 Mg Tab, 0.3 MG PO BID, (Reported) Doxazosin Mesylate (Doxazosin Mesylate) 4 Mg Tab, 4 MG PO DAILY, (Reported) Finasteride (Proscar) 5 Mg Tab, 5 MG PO DAILY, (Reported) Metoprolol Tartrate (Metoprolol Tartrate) 50 Mg Tab, 50 MG PO BID, (Reported) Multivitamins *[facility] STOCKED* (Thera M Plus *[facility] STOCKED*) 1 Tab Tab, 1 TAB PO DAILY, (Reported) Pantoprazole Sodium Sesquihydr (Protonix) 40 Mg Tab, 40 MG PO DAILY, (Reported) Scheduled PRN Nitroglycerin (Nitrostat) 0.4 Mg Subl, 0.4 MG SL PRN PRN for ANGINA, (Reported) Allergies Coded Allergies: NSAIDs (Unverified Allergy, Unknown, 12/31/15) ALMA SANCHEZ MD October 22, 2016 10:29
[2016-10-22 11:53] VITALS: BP 162/76
[2016-10-23] MEDS ORDERED: PROT1TAB2 PO ×2 (11:43→11:45)
[2016-10-25] MEDS ORDERED: cloNIDine HCL 0.3 MG/24 HR PATCH TOP SCH (09:00)
== END 2016-10-22 11:59 | disposition home or self-care (01) | DRG 384 ==
LOC: M ED 22:14 → OBSVTOIN 10-19 01:45 → M ED INP 10-19 01:45 → M MSPAV 10-19 03:14
PROVIDERS: ADMIT Hospitalist; ATTEND Internal Medicine
PROC: 0DB68ZX Excision of Stomach, Via Natural or Artificial Opening Endoscopic, Diagnostic (ICD-10-PCS; 2016-10-20)
PROC: 0DB98ZX Excision of Duodenum, Via Natural or Artificial Opening Endoscopic, Diagnostic (ICD-10-PCS; principal; 2016-10-20 15:45)
DX: K25.9 Gastric ulcer, unspecified as acute or chronic, without hemorrhage or perforation (principal); N17.9 Acute kidney failure, unspecified; K26.9 Duodenal ulcer, unspecified as acute or chronic, without hemorrhage or perforation; E78.5 Hyperlipidemia, unspecified; I25.10 Atherosclerotic heart disease of native coronary artery without angina pectoris; I10 Essential (primary) hypertension; Z79.899 Other long term (current) drug therapy; Z79.82 Long term (current) use of aspirin; Z66 Do not resuscitate; Z88.8 Allergy status to other drugs, medicaments and biological substances; N28.1 Cyst of kidney, acquired; K57.30 Diverticulosis of large intestine without perforation or abscess without bleeding; M51.36 Other intervertebral disc degeneration, lumbar region; C67.9 Malignant neoplasm of bladder, unspecified

== ENCOUNTER → 2016-12-02 | Outpatient (REF) | payer MEDICARE, BC, OTHER ==
[~2016-12-02] MED LIST changes: +ALLO15TA PO; +ASPI325T24 PO; -ASPI32ECTA PO; -CLON-404 PO; +CLON0.3T PO; -METO50TA2 PO; +METO50TA7 PO; +VITMTA PO; -cloNIDine HCL 0.3 MG/24 HR PATCH TOP SCH
== END ==
LOC: M SMT 13:07
PROVIDERS: ATTEND Urology
DX: C67.9 Malignant neoplasm of bladder, unspecified (principal)

== ENCOUNTER → 2017-06-09 | Outpatient (REF) | payer MEDICARE, OTHER | LOC: M SMT 13:01 | DX: C67.9 Malignant neoplasm of bladder, unspecified (principal) | CPT/HCPCS: 88108 ==

== ENCOUNTER 2017-07-22 06:38 | Day surgery (SDC) | payer MEDICARE, BC, OTHER ==
[2017-07-22] MEDS ORDERED: PROPOFOL 200 MG/20 ML VIAL As Ordered (06:50)
[2017-07-22] MEDS ORDERED: LIDOCAINE 2% INJ 100 MG/5 ML SDV (FOR ANES.) As Ordered (06:50)
[2017-07-22] MEDS: NS 500 ML IV (07:08)
== END 2017-07-22 08:26 | disposition home or self-care (01) ==
LOC: M OPP 06:38
DX: K26.9 Duodenal ulcer, unspecified as acute or chronic, without hemorrhage or perforation (principal); K22.8 Other specified diseases of esophagus; K31.89 Other diseases of stomach and duodenum; C67.9 Malignant neoplasm of bladder, unspecified; I10 Essential (primary) hypertension; I25.10 Atherosclerotic heart disease of native coronary artery without angina pectoris; Z95.5 Presence of coronary angioplasty implant and graft; E78.5 Hyperlipidemia, unspecified; M10.9 Gout, unspecified; K57.32 Diverticulitis of large intestine without perforation or abscess without bleeding; R12 Heartburn; K21.9 Gastro-esophageal reflux disease without esophagitis; M19.90 Unspecified osteoarthritis, unspecified site; M54.2 Cervicalgia; N40.1 Benign prostatic hyperplasia with lower urinary tract symptoms; Z87.891 Personal history of nicotine dependence; Z88.8 Allergy status to other drugs, medicaments and biological substances; Z79.82 Long term (current) use of aspirin; Z79.899 Other long term (current) drug therapy; Z80.9 Family history of malignant neoplasm, unspecified
CPT/HCPCS: 43235

== ENCOUNTER → 2017-09-08 | Outpatient (REF) | payer MEDICARE, OTHER | LOC: M SMT 12:58 | DX: C67.9 Malignant neoplasm of bladder, unspecified (principal) | CPT/HCPCS: 88108 ==

== ENCOUNTER 2017-09-25 11:06 | Day surgery (SDC) | payer MEDICARE, BC, OTHER ==
[2017-09-25] MEDS ORDERED: LIDOCAINE 1% SDV 5 ML VIAL SQ (11:15)
[2017-09-25] MEDS: LR 1,000 ML IV (12:17)
[2017-09-25] MEDS ORDERED: MIDAZOLAM INJ 2 MG/2 ML VIAL (J2250) As Ordered (13:29)
[2017-09-25] MEDS ORDERED: fentaNYL 100 MCG/2 ML INJECTION (J3010) As Ordered (13:29)
[2017-09-25] MEDS ORDERED: PROPOFOL 200 MG/20 ML VIAL As Ordered (13:30)
[2017-09-25] MEDS ORDERED: ROCURONIUM BROMIDE 50 MG/5 ML VIAL As Ordered (13:31)
[2017-09-25] MEDS ORDERED: LIDOCAINE 2% INJ 100 MG/5 ML SDV (FOR ANES.) As Ordered (13:31)
[2017-09-25] MEDS: CONRAY-60 60% 50ML VIAL (Q9961) As Ordered (14:20)
[2017-09-25] MEDS ORDERED: dexameTHASONE 4 MG/ML 1ML VIAL (J1100) As Ordered (14:30)
[2017-09-25] MEDS ORDERED: PHENYLephrine HCL 500 MCG/5 ML (100MCG/ML) SYRINGE (J2370) As Ordered (14:30)
[2017-09-25] MEDS ORDERED: ONDANSETRON 4MG/2ML VIAL (J2405) As Ordered (14:30)
[2017-09-25] MEDS ORDERED: ePHEDrine SULFATE 25 MG/5 ML(5MG/ML) SYRINGE As Ordered (14:30)
[2017-09-25] MEDS: fentaNYL 100 MCG/2 ML INJECTION (J3010) IV ×4 (15:07→15:48)
[2017-09-25] MEDS: PERCOCET 5MG/325MG TAB PO ×2 (15:10→15:50)
[2017-09-25] MEDS ORDERED: MEPERIDINE INJ 25 MG/ML VIAL (J2175) IV (15:15)
[2017-09-25] MEDS ORDERED: PERCOCET 5MG/325MG TAB PO (15:15)
[2017-09-25] MEDS ORDERED: METOCLOPRAMIDE INJ 10MG/2ML VIAL (J2765) IV (15:15)
[2017-09-25] MEDS ORDERED: ONDANSETRON 4MG/2ML VIAL (J2405) IV (15:15)
[2017-09-25] MEDS ORDERED: ACETAMINOPHEN TAB 650MG DOSE (2X325MG) PO (15:15)
[2017-09-25] MEDS ORDERED: LR 1,000 ML IV (15:15)
[2017-09-25] MEDS: LABETALOL HCL 100 MG/20 ML VIAL IV ×4 (15:22→16:02)
[2017-09-25] MEDS ORDERED: MORPHINE 10 MG/ML 1ML VIAL (J2270) As Ordered ×2 (16:18→18:29)
[2017-09-25] MEDS: MORPHINE 10 MG/ML 1ML VIAL (J2270) IV ×5 (16:20→18:53)
[2017-09-25] MEDS ORDERED: diphenhydrAMINE INJ 50MG/ML VIAL (J1200) As Ordered (16:58)
[2017-09-25] MEDS: diphenhydrAMINE INJ 50MG/ML VIAL (J1200) IV (17:00)
[2017-09-25] MEDS: oxyBUTYnin 5 MG TAB PO (20:20)
[2017-09-25] MEDS: KETOROLAC 30 MG/ML VIAL (J1885) IV (20:23)
== END 2017-09-25 21:25 | disposition home or self-care (01) ==
LOC: M SDC 11:06
DX: D49.4 Neoplasm of unspecified behavior of bladder (principal); I25.10 Atherosclerotic heart disease of native coronary artery without angina pectoris; N40.0 Benign prostatic hyperplasia without lower urinary tract symptoms; I12.9 Hypertensive chronic kidney disease with stage 1 through stage 4 chronic kidney disease, or unspecified chronic kidney disease; E78.4 Other hyperlipidemia; R73.03 Prediabetes; Z79.82 Long term (current) use of aspirin; Z79.899 Other long term (current) drug therapy; Z87.891 Personal history of nicotine dependence
CPT/HCPCS: 52234

== ENCOUNTER → 2018-01-05 | Outpatient (REF) | payer MEDICARE, OTHER | LOC: M SMT 13:23 | DX: C67.9 Malignant neoplasm of bladder, unspecified (principal) | CPT/HCPCS: 88108 ==

== ENCOUNTER → 2018-03-30 | Outpatient (REF) | payer MEDICARE, OTHER | LOC: M SMT 12:56 | DX: C67.9 Malignant neoplasm of bladder, unspecified (principal) | CPT/HCPCS: 88108 ==

== ENCOUNTER → 2018-06-28 | Outpatient (REF) | payer MEDICARE, OTHER ==
[~2018-06-28] MED LIST changes: -ASPI325T24 PO; +ASPI325T25 PO; +ASPI81TA85 PO; +CEFU50TA PO; +CENTTAB47 PO; +DIOV320T6 PO; +NYST10CR EXT; +PANT40TA3 PO; +ROSU20TA4; +TICEINJ IS; -ZYLO300T4 PO; +ZYLO300T6 PO
== END ==
LOC: M SMT 17:10
PROVIDERS: ATTEND Urology
DX: C67.9 Malignant neoplasm of bladder, unspecified (principal)

== ENCOUNTER → 2019-01-03 | Outpatient (REF) | payer MEDICARE, OTHER ==
[~2019-01-03] MED LIST changes: -ALLO15TA PO; +ALLO300T2 PO; +ASPI-255 PO; -ASPI325T25 PO; -ROSU20TA4; +ROSU20TA5
== END ==
LOC: M SMT 13:27
PROVIDERS: ATTEND Urology
DX: C67.9 Malignant neoplasm of bladder, unspecified (principal)

== ENCOUNTER → 2019-07-04 | Outpatient (REF) | payer MEDICARE, OTHER ==
[~2019-07-04] MED LIST changes: -SIMV20TA2 PO; +SIMV20TA22 PO
== END ==
LOC: M SMT 13:27
PROVIDERS: ATTEND Urology
DX: Z85.51 Personal history of malignant neoplasm of bladder (principal)

== ENCOUNTER → 2020-02-03 | Outpatient (REF) | payer MEDICARE, BC, OTHER ==
[~2020-02-03] MED LIST changes: -ASPI81TA85 PO; +ASPI81TA86 PO; +PANT40TA29 PO; -PANT40TA3 PO
== END ==
LOC: M SMT 17:08
PROVIDERS: ATTEND Urology
DX: C67.9 Malignant neoplasm of bladder, unspecified (principal)
CPT/HCPCS: 52000; 88108; G0463

== ENCOUNTER → 2021-02-04 | Outpatient (REF) | payer MEDICARE, OTHER | LOC: M SMT 13:42 | PROVIDERS: ATTEND Urology | DX: Z85.51 Personal history of malignant neoplasm of bladder (principal) ==

== ENCOUNTER → 2022-12-31 | Outpatient (REF) | payer MEDICARE, OTHER ==
[~2022-12-31] MED LIST changes: +FINA-48 PO; -GLUCTAB6 PO; +GLUCTAB7 PO; +NYST-13 EXT; -NYST10CR EXT; -PROS5TAB PO; -ROSU20TA5; +ROSU20TA61
== END ==
LOC: M SFHCDERM 17:31
PROVIDERS: ATTEND Dermatology
DX: D23.121 Other benign neoplasm of skin of left upper eyelid, including canthus (principal)

== ENCOUNTER → 2024-03-21 | Outpatient (REF) | payer MEDICARE, OTHER ==
[~2024-03-21] MED LIST changes: -ROSU20TA61; +ROSU20TA86
== END ==
LOC: M SMT 14:51
PROVIDERS: ATTEND Urology
DX: Z85.51 Personal history of malignant neoplasm of bladder (principal)

== ENCOUNTER → 2025-03-20 | Outpatient (REF) | payer MEDICARE, OTHER, BC ==
[~2025-03-20] MED LIST changes: -NYST-13 EXT; +NYST0.1C EXT
== END ==
LOC: M SMT 13:08
PROVIDERS: ATTEND Urology
DX: C67.9 Malignant neoplasm of bladder, unspecified (principal)